=== PATIENT | male | born 1955 ===

== ENCOUNTER 2019-06-25 06:09 | Inpatient (IN) ==
[~2019-06-25 06:09] MED LIST: Bacitracin 50,000 UNIT, Polymyxin B Sulfate 500,000 UNIT, Sodium Chloride IRRigation 1,... IR ONE
[2019-06-25] MEDS ORDERED: CeFAZolin Syr 3,000MG/30 ML 3,000 MG/30 ML SYRINGE IVPB ONE (06:32)
[2019-06-25] MEDS ORDERED: Albuterol 2.5 MG/3 ML NEBULIZER IH ONE (06:32)
[2019-06-25] MEDS ORDERED: Ringers Solution, Lactated 1,000 ML IVC SCH (06:45)
[2019-06-25] MEDS ORDERED: *HR* Succinylcholine 200 MG/10 ML VIAL IVP ONE (07:13)
[2019-06-25] MEDS ORDERED: *HR* Midazolam HCl 2 MG/2 ML VIAL ONE (07:13)
[2019-06-25] MEDS ORDERED: *HR* Propofol 200 MG/20 ML VIAL IVP ONE (07:13)
[2019-06-25] MEDS ORDERED: *HR* Rocuronium Bromide 50 MG/5 ML VIAL ONE (07:13)
[2019-06-25] MEDS ORDERED: Lidocaine -MPF 2% 2 ML VIAL ONE (07:13)
[2019-06-25] MEDS ORDERED: Lidocaine HCL 4 ML Topical Solution (Laryng-O-Jet Kit Sterile Pak) TP ONE ×2 (07:13→18:24)
[2019-06-25] MEDS ORDERED: *HR* FentaNYL (PF) 100 MCG/2 ML VIAL ONE ×2 (07:13→07:15)
[2019-06-25] MEDS ORDERED: *HR* Remifentanil 1 MG VIAL IVP ONE ×6 (07:16→14:28)
[2019-06-25] MEDS ORDERED: Lacri-Lube 3.5 GM TUBE ONE (07:17)
[2019-06-25] MEDS ORDERED: LIDOCAINE 1% PF 2 ML AMPUL ONE (07:22)
[2019-06-25] MEDS ORDERED: PROPOFOL IVC ONE (07:27)
[2019-06-25] MEDS ORDERED: Acetaminophen IV 1,000 MG/100 ML INFUS..BTL IVPB ONE (07:28)
[2019-06-25] MEDS ORDERED: Famotidine 20 MG/2 ML VIAL IVP ONE (07:28)
[2019-06-25] MEDS ORDERED: Pregabalin 75 MG CAPSULE PO ONE (07:28)
--- NOTE | 2019-06-25 07:31 | Anesthesia Evaluation PreOp ---
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 ASSISTANT History: Other (L>>R pain/weakness arms and legs) Other Medical History: Diabetes Type II Anesthesia History: No Prior Anesthetic Complications, Past Anesthesia Alcohol Use: none Drug use: none Medications and Allergies Amitriptyline [Elavil] 50 mg PO HS 06/25/19 [History] Amlodipine Besylate 10 mg PO DAILY 06/25/19 [History] Ascorbic Acid [Vitamin C with Asuncion Hips] 500 mg PO DAILY 06/25/19 [History] Atorvastatin [Lipitor] 40 mg PO HS 06/25/19 [History] Cholecalciferol (D-3) [Vitamin D] 1,000 unit PO DAILY 06/25/19 [History] Cholecalciferol (Vitamin D3) [Vitamin D] 50,000 unit PO QMONTH 06/25/19 [History] Febuxostat [Uloric] 40 mg PO DAILY 06/25/19 [History] Ferrous Sulfate 325 mg PO DAILY 06/25/19 [History] Furosemide [Lasix] 40 mg PO DAILY PRN 06/25/19 [History] Gabapentin 1,600 mg PO BID 06/25/19 [History] Lisinopril [Zestril] 20 mg PO DAILY 06/25/19 [History] Loratadine [Claritin] 10 mg PO DAILY 06/25/19 [History] Metformin HCl [Glucophage] 1,000 mg PO DAILY 06/25/19 [History] Metoprolol [Lopressor] 12.5 mg PO DAILY 06/25/19 [History] Mometasone/Formoterol [Dulera 100 Mcg/5 Mcg Inhaler] 2 puff IH BID 06/25/19 [History] Montelukast [Singulair] 10 mg PO DAILY 06/25/19 [History] Potassium Chloride [K-Tab ER] 20 meq PO DAILY 06/25/19 [History] Rivaroxaban [Xarelto] 20 mg PO QPM 06/25/19 [History] Tamsulosin [Flomax] 0.4 mg PO DAILY 06/25/19 [History] Allergy/AdvReac Type Severity Reaction Status Date / Time No Known Allergies Allergy Verified 06/25/19 07:17 - Meds/Allergy Pre-op Review Medications Reviewed: Yes Allergies Reviewed: Yes Beta Blockers on Current Med List: No Anesthesia Results - Labs Laboratory Tests 06/14/19 06/14/19 06/14/19 12:00 12:00 12:00 WBC 7.6 Hgb 14.2 Hct 44.8 Plt Count 276 PT 13.4 H INR 1.2 APTT 41.1 H Sodium 133 L Potassium 4.2 Chloride 98 Carbon Dioxide 25 BUN 17 Est GFR (Non-Af Amer) > 60 Hemoglobin A1c 06/14/19 12:00 WBC Hgb Hct Plt Count PT INR APTT Sodium Potassium Chloride Carbon Dioxide BUN Est GFR (Non-Af Amer) Hemoglobin A1c 12.6 H Anesthesia Exam O2 Sat Height 1.7 m Height 1.7 m Weight 135.624 kg Weight 135.624 kg O2 Sat by Pulse Oximetry 93 Vital Signs Temp Pulse Resp BP Pulse Ox 98.8 F 104 18 132/91 93 06/25/19 07:27 06/25/19 07:27 06/25/19 07:27 06/25/19 07:27 06/25/19 07:27 Height: 5'7" Weight: 299# BMI = 47 NPO (# of Hours): MNOC - HEENT Pupil (Motor): Pupils equal, EOMI Mallampati: III Teeth: Normal Oral Opening: Greater than 3 - CERTIFIED ANESTHESIOLOGIST ASSISTANT LOC: Oriented CERTIFIED ANESTHESIOLOGIST ASSISTANT Motor: Normal Face, Deficit RUE (L>>R arm & leg Pain/Weakness), Deficit LUE, Deficit RLE, Deficit LLE CERTIFIED ANESTHESIOLOGIST ASSISTANT Sensory: Normal: Face, Deficit: RUE, LUE, RLE, LLE - Cardiac Rhythm: Regular Murmur: None - Pulmonary Breath Sounds: bilateral Clear Respiratory Effort: Symmetrical Anesthesia Assess/Plan ASA Score: 4 (HTN, Chol, Uncontrollled DM, ROBYN, COPD, Cervical Myelopathy) Level of consciousness: Cooperative, Oriented, Tranquil Anesthetic Plan: General Monitoring Plan: Standard Monitors Recovery Plan: PACU Anes Supervising Prov Stmt: Pt seen/evaluated, R&B Discussed, questions answered and consent obtained .Seth Gillette MD
--- NOTE | 2019-06-25 07:41 | History & Physical Report ---
Date of Encounter: 06/25/19 Time of Encounter: 07:35 24 Hour HP Update - Instructions Instructions: If the History and Physical is less than 30 days old and was completed prior to A.M. admission and or procedure and has NOT been updated on calendar day of procedure please complete this update prior to performing procedure. - Update Patient reports changes in Medical Condition: No Changes in examination, assessment, or condition: No Changes in Medication: No Preop tests/diagnostics Reviewed: Yes Pre-Op MRSA Screen: Negative Surgery Remains Indicated: Yes Consent for Planned Operative Procedure(s) Verified: Yes - Pre-Operative Checklist Preoperative Checklist Indicated: No Prophylactic Antibiotic Ordered: Yes Home Medications Include Beta Dirk: Yes Beta Dirk Taken Today (Day of Surgery): No Beta Dirk Taken Yesterday (Day Prior to Surgery): Yes Is VTE Prophylaxis Indicated?: Yes
[2019-06-25] MEDS ORDERED: Bacitracin 50,000 UNIT, Polymyxin B Sulfate 500,000 UNIT, Sodium Chloride IRRigation 1,... IR ONE (07:45)
[2019-06-25] MEDS ORDERED: Metoclopramide 10 MG/2 ML VIAL ONE (07:49)
[2019-06-25] MEDS ORDERED: Metoprolol XL (24 HR) Succ 50 MG TAB.ER.24H PO ONE (07:49)
[2019-06-25] MEDS ORDERED: Insulin Human Regular 10 UNIT in 0.9 % Sodium Chloride 10 ML IV PRN ×2 (08:14→08:30)
[2019-06-25] MEDS ORDERED: *HR* PHENYLEPHRINE 1,000 MCG/10 ML SYRINGE IVP ONE ×3 (08:14→12:03)
[2019-06-25] MEDS ORDERED: *HR* Phenylephrine 10 MG/ML VIAL ONE ×2 (08:24→12:29)
[2019-06-25] MEDS ORDERED: *HR* HYDROmorphone 2 MG TABLET PO PRN (09:12)
[2019-06-25] MEDS ORDERED: *HR* Promethazine 25 MG/ML VIAL IVP PRN (09:12)
[2019-06-25] MEDS ORDERED: *HR* HYDROmorphone (PF) 1 MG/ML SYRINGE IVP PRN (09:12)
[2019-06-25] MEDS ORDERED: *HR* Labetalol 20 MG/4 ML SYRINGE IVP PRN (09:12)
[2019-06-25] MEDS ORDERED: *HR* OxyCODONE Immed Rel 5 MG TABLET PO PRN (09:12)
[2019-06-25] MEDS ORDERED: Ondansetron 4 MG/2 ML VIAL ONE ×2 (09:50→19:08)
[2019-06-25] MEDS ORDERED: Dexamethasone 4 MG/ML VIAL ONE ×4 (09:50→19:08)
[2019-06-25] MEDS ORDERED: Propofol 3,000 MG/300 ML INFUS..BTL IVC ONE (11:55)
[2019-06-25] MEDS ORDERED: *HR* Dextrose 50 % in Water (Syg) 50 ML SYRINGE IVP PRN ×2 (11:57→21:50)
[2019-06-25] MEDS ORDERED: Insulin Human Regular 100 UNIT in 0.9 % Sodium Chloride 100 ML IVC SCH (12:00)
--- NOTE | 2019-06-25 15:31 | Orthopedic Operative Note ---
Date of procedure: 06/25/19 Pre-op diagnosis: Cervical stenosis, cervical myelopathy, OPLL Post-op diagnosis: same Operation/Findings: Posterior cervical fusion C2-C7: Patient was brought to the operative theater where he successfully underwent general endotracheal intubation. He was given antibiotics prior to the start of the procedure. Compression boots and stockings were used for deep vein thrombosis prophylaxis. A Mendoza catheter was placed. Leads were placed on the upper extremities and lower extremities as well as the cranium. The neurologic monitoring personnel confirmed satisfactory readings prior to the start of the procedure. Kan tongs were placed on the patient in standard fashion. The patient was turned prone on the operative table and the head rest secured to the table. The area from the mid occipital to the mid thoracic spine was prepped and draped in the usual sterile fashion posteriorly. An incision was made and centered over the C2-C7 cervical spinous processes in the midline. The scoring incision was deepened through the cervical fascia. We used Bovie cautery and Falk elevators to carefully dissect the lateral masses and expose them from C2-C7. Radiographic confirmation was confirmed by the radiologist via a discussion. We then placed lateral mass screws at C3, C4, C5, and C6, bilaterally using standard techniques. 8 separate 3.5 x 12 mm lateral mass screws were placed uneventfully and confirmed via fluorographic views as having satisfactory placement. After placement of the lateral mass screws, we turned our attention to the decompression. We removed the ligamentum flavum and interspinous and supraspinous ligaments at C5-6. We proceeded proximally with the decompression. This includes a laminectomy of C6, C5, C4, and C3. All intervening ligamentum flavum and ligamentous material was removed. We also performed a partial decompression of C2-3. Bone obtained from the laminectomies was saved in a separate sterile container for later use. After the decompression, the spinal cord could be clearly visualized from C2-3 C3 to C6. . The spinal cord was seen to expand nicely. We copiously irrigated the wound. We then decorticated the facet joints and lateral masses from C2-3, C3-4, C4-5, C5-6, and C6-7 bilaterally until bleeding bone was obtained. We then used the autograft bone obtained from the laminectomy/decompression and placed it over the lateral masses and facet joints in these regions. We then placed rods within the screw heads from C3-C6 bilaterally. We subsequently placed screw caps over the Rods and locked and finally tightened the construct in standard fashion. We then closed the wound in layers with 1 Vicryl for the Fascia, 2-0 Vicryl for the more superficial fascia and 2-0 Vicryl was used for skin closure. Dermabond was paced over the wound. Sterile dressing was placed over the wound as well. Cervical collar was placed. Patient was turned supine and extubated on the Hospital Bed. The patient was in good condition at the end of the procedure. All sponge counts, needle counts, and Instruments were correct at the end of the procedure. Anesthesia: GETA Surgeon: Tio Hernández Jr Was there an advertising sales assistant present: No Estimated blood loss (cc): 400 Specimen: None Condition: stable Disposition: PACU
[2019-06-25] MEDS ORDERED: Furosemide 40 MG/4 ML VIAL ONE (16:03)
[2019-06-25] MEDS ORDERED: EPHEDrine 50 MG/ML VIAL ONE (17:23)
--- NOTE | 2019-06-25 18:52 | Neurology - Consult Note ---
Date of Encounter: 06/25/19 Time of Encounter: 18:49 Assessment and Plan (1) Quadriparesis (muscle weakness) Current Visit: Yes Status: Acute At this time, patient is intubated and awake, is able to follow some commands however some responses to questions are inconsistent. However, at this time patient has profound weakness in all 4 extremities. Although at the time of my first assessment, he was not able to move anything. However, 40 or so minutes later, he was able to move the toes on the right foot and dorsiflex the right ankle. There are absolutely no long tract signs, no spasticity hyperreflexia or clonus. I was also not able to identify a spinal sensory level. Certainly it seems logical to suspect that there is been some injury at the cervical level, however it is difficult to explain based on conventional understanding of neuroanatomy any specific spinal cord syndrome that explains this examination. Perhaps this may be some transient effect from the surgical positioning. Decadron has been given. X-ray revealed no evidence of blood in the spinal canal. We will continue to monitor. Will sign out to Dr. Sebastian for ongoing assessment. History of Present Illness HPI: The chart was reviewed, the patient was seen and examined. Case was discussed with Dr. Hernández. Patient is a 64-year-old male known to me who has a history of multilevel cervical spinal stenosis. Patient was admitted for a posterior approach decompression. No problems were encountered during the procedure. However well in the recovery room the patient was having difficulty with moving the extremities. Patient was immediately assessed and sent for x-rays of the cervical spine which were unremarkable. Patient was then given Decadron and I was called by Dr. Hernández for status assessment. Patient does have some spatial swelling therefore it was decided not to extubate the patient at this time. Patient is awake, however does not open his eyes fully. However he seems a bit groggy and gives inconsistent responses and answers to questions. Initially when I presented however the patient could not move at all and then over the course of my assessment he was ultimately able to wiggle the toes and move the right foot up and down. He was not able to move either upper extremity or the left lower extremity. Prior to surgery however his left side was more weak than the right. Past Med Surg Social Fam HX - Past Medical History Medical history: arthritis, asthma, COPD, diabetes, glaucoma, hypertension, pulmonary embolus, RA Additional medical history: Cataracts Psychiatric history: no psych history - Past Surgical History Surgical History: orthopedic, other, other Additional surgical history: blood clot lung,knee - Social History Smoking Status: Former smoker Smokeless Tobacco Status: No Alcohol use: none Drug use: none Medications and Allergies Amitriptyline [Elavil] 50 mg PO HS 06/25/19 [History] Amlodipine Besylate 10 mg PO DAILY 06/25/19 [History] Ascorbic Acid [Vitamin C with Asuncion Hips] 500 mg PO DAILY 06/25/19 [History] Atorvastatin [Lipitor] 40 mg PO HS 06/25/19 [History] Cholecalciferol (D-3) [Vitamin D] 1,000 unit PO DAILY 06/25/19 [History] Cholecalciferol (Vitamin D3) [Vitamin D] 50,000 unit PO QMONTH 06/25/19 [History] Febuxostat [Uloric] 40 mg PO DAILY 06/25/19 [History] Ferrous Sulfate 325 mg PO DAILY 06/25/19 [History] Furosemide [Lasix] 40 mg PO DAILY PRN 06/25/19 [History] Gabapentin 1,600 mg PO BID 06/25/19 [History] Lisinopril [Zestril] 20 mg PO DAILY 06/25/19 [History] Loratadine [Claritin] 10 mg PO DAILY 06/25/19 [History] Metformin HCl [Glucophage] 1,000 mg PO DAILY 06/25/19 [History] Metoprolol [Lopressor] 12.5 mg PO DAILY 06/25/19 [History] Mometasone/Formoterol [Dulera 100 Mcg/5 Mcg Inhaler] 2 puff IH BID 06/25/19 [History] Montelukast [Singulair] 10 mg PO DAILY 06/25/19 [History] Potassium Chloride [K-Tab ER] 20 meq PO DAILY 06/25/19 [History] Rivaroxaban [Xarelto] 20 mg PO QPM 06/25/19 [History] Tamsulosin [Flomax] 0.4 mg PO DAILY 06/25/19 [History] Allergy/AdvReac Type Severity Reaction Status Date / Time No Known Allergies Allergy Verified 06/25/19 07:17 ROS unobtainable: due to endotracheal tube All Systems: The remainder of the systems were reviewed and are negative Physical Examination - Vital Signs Vital Signs: Initial Vital Signs Temp Pulse Resp BP Pulse Ox 98.8 F 104 18 132/91 93 06/25/19 07:27 06/25/19 07:27 06/25/19 07:27 06/25/19 07:06/25/19 07:27 - Exam Exam: General Examination: *CONSTITUTIONAL: Currently intubated *GENERAL APPEARANCE OF PATIENT currently intubated in the PACU *EYES: pupils equal, round, reactive to light and accommodation, conjunctiva clear without masses or ulcerations. *CARDIOVASCULAR some mild edema of the eyelids and face, distal temperature normal, dorsalis pedis pulses normal. Refer to vital signs Musculoskeletal: *GAIT AND STATION -not able to stand or walk at this time. *ASSESSMENT OF MUSCLE STRENGTH IN THE UPPER AND LOWER EXTREMITIES at this time patient is only able to dorsiflex and plantar flex the right foot, and move the toes on the right foot. There is no involuntary movements of the right leg above the knee, either upper extremity or the left lower extremity at this time. *MUSCLE TONE IN THE UPPER AND LOWER EXTREMITIES normal. No involuntary movements or atrophy are identified. Neurological: *ORIENTATION difficult to assess patient is intubated *RECURRENT AND REMOTE MEMORY patient is intubated *ATTENTION AND CONCENTRATION response to questions by nodding yes or no, however some of his responses are inconsistent and perhaps unreliable. *LANGUAGE FUNCTION patient is intubated and unable to speak. *FUND OF KNOWLEDGE unable to determine at this time. *MENTAL patient does open his eyes upon command and does make eye contact. *CN II optic fundi were normal, no papilledema noted. *CN III,IV, PERRLA extraocular eye movements were full, no nystagmus and no ptosis noted. *CN V shows normal sensation and jaw opens symmetrically. *CN VIII difficult to assess this patient remains intubated. *CN VIII shows no significant hearing loss on examination in the office. *CN IX,,X palate elevated symmetrically and normal gag reflex was noted. *CN XI difficult to assess at the time. *CN XII tongue protruded in the midline, with normal strength and movement. *SENSORY EXAMINATION I am not able to identify any evidence of a spinal level. Patient feels pinprick throughout the torso, and all 4 extremities however at times it is difficult to discern whether not he can distinguish sharp from dull. It is difficult to assess proprioception because of this. *REFLEXES: deep tendon reflexes were absent. However certainly no evidence of any long tract signs, no Babinski signs were identified no ankle clonus. *CEREBELLAR TESTING WAS not completed. *PAIN LEVEL patient does admit to pain however exact level is difficult to assess. Results - Laboratory Findings Abnormal lab findings: Abnormal lab results POC Glucose 271 mg/dL (70-99) H 06/25/19 15:11 Consult Discharge Plan - Plan Referrals: NONE,PCP [Primary Care Provider] -
--- NOTE | 2019-06-25 19:04 | Anesthesia Evaluation Post Op ---
Date of Encounter: 06/25/19 Time of Encounter: 19:03 - Vital Signs Vital Signs: Vital Signs/O2 Sat, Most Current Temp Pulse Resp BP Pulse Ox 99 F 91 18 131/81 99 06/25/19 18:38 06/25/19 18:58 06/25/19 18:58 06/25/19 18:58 06/25/19 18:58 - Lungs Lungs: Clear Ascult./Percussion - Airway Airway: Non-obstructed - Cardiovascular Regular Rate - Mental Status Mental Status: Alert & Oriented, Answers Appropriately - Pain Pain Scale: 0 Pain Scale used: Numeric (1 - 10) - Nausea Vomiting Nausea Vomiting: Not Present - Hydration Hydration: NPO, Mendoza catheter - Discharge PostOp Status: Transfer Patient to floor (Patient not moving Loco. UE and LLE, evaluated by neurologist and will be observed in ICU)
[2019-06-25] MEDS ORDERED: NON-FORMULARY MEDICATION 1 EACH EACH (Cholecalciferol (Vitamin D3) [Vitamin D3] 50,000 UNI PO SCH (20:04)
[2019-06-25] MEDS ORDERED: Naloxone 0.4 MG/ML INJ IVP PRN (20:04)
[2019-06-25] MEDS ORDERED: *HR* HYDROcodone/Acet 5/325 mg TABLET PO PRN (20:04)
[2019-06-25] MEDS ORDERED: Ondansetron 4 MG/2 ML VIAL IVP PRN (20:04)
[2019-06-25] MEDS ORDERED: Acetaminophen 325 MG TABLET PO PRN (20:04)
--- NOTE | 2019-06-25 20:31 | Internal Med History&Physical ---
<Jaret Sykes - Last Filed: 06/26/19 00:40> Date of Encounter: 06/26/19 Time of Encounter: 20:31 Internal Medicine - H&P: HPI History of present illness: Mr. Segal is a 64-year-old male with a PMH of cervical spinal stenosis, asthma, COPD, DM, HTN, RA, previous PE on Xarelto who was admitted for a posterior approach cervical decompression with posterior cervical fusion from levels C2- C7. No complications occurred during the procedure. In the recovery room however, patient was noted to have difficulty moving his extremities. A cervical spine XR was obtained, which was unremarkable. He was then given a dose of Decadron. Neurology was consulted, who discussed the case with Dr. Hernández. Per neurology note, patient had inconsistent responses to some questions and was able to follow some commands. He was noted to have profound weakness in all 4 extremities. Initially, he was unable to move his extremities, but approximately 40 minutes later, he was able to move the toes on his right foot and dorsiflex his right ankle. No long tract, spasticity, clonus, or hyperreflexia were noted. Patient was transferred to the ICU for further management and observation. His glucose has been elevated since admission. POC glucose was 395 at 06:33. He was started on insulin drip. Last POC glucose level was 271. Of note, he has a history of poorly controlled diabetes. During my assessment, patient was only able to slightly internally and externally rotate his right lower extremity. He was unable to dorsiflex or plantarflex either of his feet. He had no other movement in any of his extremities. He was also noted to be in mild respiratory distress when I first assessed him. He was only able to speak in very short sentences before becoming short of breath. He was on 8 L of oxygen via Oxymask. He does have a known history of COPD, but does not wear oxygen at home. During my reassessment, his respiratory rate has slowed down, and he appears to be in less respiratory distress. He was satting at 98% on 8 L. We will continue to closely monitor his respiratory status for signs of decompensation. Of note, patient would be a very high-risk intubation given his recent cervical spinal fusion. During my interview with him, he kept saying that he wanted to get up. He denied any pain, numbness, or tingling in his neck or extremities. His sensation is intact in the upper and lower extremities on my assessment. I spoke with Dr. Hernández over the phone and gave him an update on patient's current status. Dr. Hernández said that he will be in to assess the patient in the morning. No urgent imaging is required at this time. Our plan in the meantime is to obtain labs, including CBC, BMP, lactate, and ABG. Patient will be transitioned from insulin drip to low-dose SSI Q6H. I will start him on low- dose, given his history of uncontrolled diabetes and the fact that his glucose is likely elevated at baseline. Past Med Surg Social Fam HX - Past Medical History Medical history: arthritis, asthma, COPD, diabetes, glaucoma, hypertension, pulmonary embolus, RA Additional medical history: Cataracts Psychiatric history: no psych history - Past Surgical History Surgical History: orthopedic, other, other Additional surgical history: blood clot lung,knee - Social History Smoking Status: Former smoker Smokeless Tobacco Status: No Alcohol use: none Drug use: none Internal Medicine - H&P: Meds Amitriptyline [Elavil] 50 mg PO HS 06/25/19 [History] Amlodipine Besylate 10 mg PO DAILY 06/25/19 [History] Ascorbic Acid [Vitamin C with Asuncion Hips] 500 mg PO DAILY 06/25/19 [History] Atorvastatin [Lipitor] 40 mg PO HS 06/25/19 [History] Cholecalciferol (D-3) [Vitamin D] 1,000 unit PO DAILY 06/25/19 [History] Cholecalciferol (Vitamin D3) [Vitamin D] 50,000 unit PO QMONTH 06/25/19 [History] Febuxostat [Uloric] 40 mg PO DAILY 06/25/19 [History] Ferrous Sulfate 325 mg PO DAILY 06/25/19 [History] Furosemide [Lasix] 40 mg PO DAILY PRN 06/25/19 [History] Gabapentin 1,600 mg PO BID 06/25/19 [History] Lisinopril [Zestril] 20 mg PO DAILY 06/25/19 [History] Loratadine [Claritin] 10 mg PO DAILY 06/25/19 [History] Metformin HCl [Glucophage] 1,000 mg PO DAILY 06/25/19 [History] Metoprolol [Lopressor] 12.5 mg PO DAILY 06/25/19 [History] Mometasone/Formoterol [Dulera 100 Mcg/5 Mcg Inhaler] 2 puff IH BID 06/25/19 [History] Montelukast [Singulair] 10 mg PO DAILY 06/25/19 [History] Potassium Chloride [K-Tab ER] 20 meq PO DAILY 06/25/19 [History] Rivaroxaban [Xarelto] 20 mg PO QPM 06/25/19 [History] Tamsulosin [Flomax] 0.4 mg PO DAILY 06/25/19 [History] Allergy/AdvReac Type Severity Reaction Status Date / Time No Known Allergies Allergy Verified 06/25/19 07:17 All Systems PM: A 10-system review of systems was performed and is negative for pertinent findings except as documented above in the HPI. - Cardiovascular Cardiovascular ROS IM: dyspnea, no chest pain, no palpitations - Respiratory Respiratory: dyspnea - Musculoskeletal Musculoskeletal ROS IM: no neck pain, no numbness, no tingling - Neurological Neurological ROS: focal weakness, other Additional comments: Unable to move all 4 extremities, with the exception of slight internal and external rotation of the right lower extremity - Constitutional Vitals: Temp Pulse Resp BP Pulse Ox 100.2 F H 93 19 126/85 98 06/25/19 20:00 06/25/19 20:00 06/25/19 20:00 06/25/19 20:00 06/25/19 20:00 General appearance: Present: mild distress, morbidly obese Exam: Slight internal and external rotation of the right lower extremity; no other movement present in the upper or lower extremities; 0 out of 5 strength; appears to be in moderate respiratory distress - Head Head exam: Present: atraumatic, normocephalic - Respiratory Respiratory exam: Present: decreased breath sounds Additional comments: Shortened inspiratory phase - Cardiovascular Cardiovascular exam: Present: RRR, +S1, +S2 - GI/Abdominal GI/Abdominal exam: Present: normal bowel sounds, soft - Extremities Exam Extremities exam: Absent: pedal edema, tenderness - Neurological Exam Neurological exam: Absent: strengths equal and symetr throughout, facial droop, speech deficit - Expanded Neurological Exam Neuro motor strength exam: LUE: 0, RUE: 0, LLE: 0, RLE: 0 - Skin Skin exam: Present: dry, intact Internal Med - H&P Results - Labs CBC & Chem 7: 06/25/19 21:20 06/25/19 21:20 - Impressions ITS Impressions Cervical Spine X-Ray 06/25/19 00:00 IMPRESSION: Status post posterior stabilization from C3-C6. D/ / 06/25/2019 15:26:56 Amadeo Cheung MD / maria guadalupe Interpreting Provider: Amadeo Cheung MD Fluoroscopy 06/25/19 00:00 IMPRESSION: Status post posterior stabilization from C3-C6. D/ / 06/25/2019 15:26:56 Amadeo Cheung MD / maria guadalupe Interpreting Provider: Amadeo Cheung MD Cervical Spine X-Ray 06/25/19 17:13 IMPRESSION: Posterior cervical fusion from C3 through C6. D/ / 06/25/2019 17:51:31 Clifford Salgado MD / maria guadalupe Interpreting Provider: Clifford Salgado MD - Assessment and Plan (1) Quadriparesis (muscle weakness) Current Visit: Yes Status: Acute Assessment and plan: - Patient is status post posterior cervical fusion of C2-C7 by Dr. Hernández for cervical spinal stenosis on 06/25/19 - Patient noted to have lack of movement in all 4 extremities after the operation - Patient received one dose of Decadron - Both Dr. Hernández and neurology are following - Per neurology note: On initial assessment, patient was unable to move his extremities at all, but 40 minutes later, had minimal movement in his right lower extremity - On my assessment, patient is able to slightly externally and internally rotate his right lower extremity, but cannot dorsiflex or plantarflex. He has no other movement in his extremities on my evaluation - I spoke with Dr. Hernández on the phone; due to patient's inability to move his right foot, his presentation is inconsistent with paralysis. Dr. Hernández states that he will reassess patient in the morning; no further imaging is indicated at this time Plan - Neurology and orthopedics are following; will reassess patient in the morning - No additional imaging is indicated at this time (2) Dyspnea Current Visit: Yes Status: Acute Assessment and plan: - On initial exam, patient was noted to be somewhat short of breath; was satting at 98% on 8L via oxymask - Patient does have a known history of COPD, but does not require oxygen at home - Given patient's inability to move his extremities, initial concern was possible diaphragmatic process - On reassessment, patient's respiratory rate has come down and he appears less distressed - Of note, patient would be a potentially high risk intubation given his recent cervical fusion Plan - Will continue to closely monitor patient's respiratory status and wean down off of oxygen - Patient will be reassessed by Dr. Hernández in the morning as documented above Qualifiers: Qualified Code(s): R06.00 - Dyspnea, unspecified (3) Status post cervical spinal fusion Current Visit: Yes Status: Acute Assessment and plan: - Status post posterior cervical fusion of C2-C7 by Dr. Hernández - Patient has hydrocodone, oxycodone ordered for pain as needed - Management per orthopedics (4) Diabetes Current Visit: Yes Status: Acute Assessment and plan: - Patient has a known history of uncontrolled diabetes - He was found to be hyperglycemic this morning at 395 - He was started on an insulin drip after being transferred to the ICU - Last POC glucose was 271 Plan - Insulin drip will be discontinued; switch to low-dose SSI Q6 Qualifiers: Qualified Code(s): E11.9 - Type 2 diabetes mellitus without complications (5) Hypertension Current Visit: Yes Status: Acute Assessment and plan: - Patient has a known history of hypertension - Well controlled at this time - Continue home Amlodipine, Lopressor Qualifiers: Qualified Code(s): I10 - Essential (primary) hypertension - Time Spent With Patient Total time spent is greater than 50% in coordination of care (as documented) at patient's floor/unit and/or counseling patient: - VTE Documentation of Mechanical Device: Graduated compression elastic hosiery <Bebeto Turpin - Last Filed: 06/26/19 06:59> Date of Encounter: 06/25/19 Internal Medicine - H&P: HPI History of present illness: Mr. Segal is a 64 year old male All Systems PM: A 10-system review of systems was performed and is negative for pertinent findings except as documented above in the HPI. - Constitutional Vitals: Temp Pulse Resp BP Pulse Ox 100.2 F H 110 17 114/83 94 06/26/19 04:42 06/26/19 06:00 06/26/19 06:00 06/26/19 06:00 06/26/19 06:00 Internal Med - H&P Results - Labs CBC & Chem 7: 06/25/19 21:20 06/25/19 21:20 Labs: Short CBC 06/25/19 Range/Units 21:20 WBC 10.1 (4.3-11.1) K/mcL Hgb 13.6 (12.9-16.9) g/dL Hct 42.8 (37.5-50.1) % Plt Count 180 (140-400) K/mcL Neutrophils # 9.0 H (1.6-8.9) K/mcL BMP 06/25/19 21:20 Sodium 135 L Potassium 4.0 Chloride 100 Carbon Dioxide 26 BUN 13 Creatinine 1.17 Glucose 259 H Calcium 8.8 - ABG Interpretation ABG results: 06/25/19 21:45 ABG pH 7.38 ABG pCO2 44 ABG pO2 104 ABG HCO3 26 ABG Total CO2 28 H ABG O2 Saturation 98 ABG Base Excess 1 - Impressions ITS Impressions Cervical Spine X-Ray 06/25/19 00:00 IMPRESSION: Status post posterior stabilization from C3-C6. D/ /25/2019 15:26:56 Amadeo Cheung MD / maria guadalupe Interpreting Provider: Amadeo Cheung MD Fluoroscopy 06/25/19 00:00 IMPRESSION: Status post posterior stabilization from C3-C6. D/ : / 06/25/2019 15:26:56 Amadeo Cheung MD / maria guadalupe Interpreting Provider: Amadeo Cheung MD Cervical Spine X-Ray 06/25/19 17:13 IMPRESSION: Posterior cervical fusion from C3 through C6. D/ / 06/25/2019 17:51:31 Clifford Salgado MD / maria guadalupe Interpreting Provider: Clifford Salgado MD - Time Spent With Patient Total time spent is greater than 50% in coordination of care (as documented) at patient's floor/unit and/or counseling patient: - Attending Attestation I saw and evaluated the patient. I reviewed the residents note, performed my own physical examination and agree with findings and plan as documented in the residents note. Patient seen and examined on 06/25/19. Consult requested by Dr. Hernández for management of hyperglycemia and diabetes. Patient still unable to move his arms and legs on my exam. We did update Dr. Hernández of patient's status, no further recommendations at this time. Blood glucose has improved, will continue to monitor. We will also continue frequent neuro checks. Follow-up with further management with Dr. Hernández and neurology in the morning.
[2019-06-25] MEDS: *HR* Rivaroxaban 10 MG TABLET PO SCH (21:23)
[2019-06-25] MEDS: Ringers Solution, Lactated 1,000 ML IVC SCH (21:42)
[2019-06-25 21:47] LABS: Basophils % 0.4 %; Eosinophils % 0.2 %; Hematocrit 42.8 % (37.5-50.1); Hemoglobin 13.6 g/dL (12.9-16.9); Immature Granulocytes % 0.6 % (0-4); Lymphocytes # 0.6 K/mcL (0.6-4.6); Lymphocytes % 5.7 %; Mean Corpuscular HGB Conc 31.8 g/dL (31.6-35.5); Mean Corpuscular Hemoglobin 25.5 pg (28.0-33.3); Mean Corpuscular Volume 80.1 fL (83.0-100.0); Mean Platelet Volume 9.8 fL (9.4-12.4); Monocytes # 0.5 K/mcL (0.0-1.3); Monocytes % 4.5 %; Platelet Count 180 K/mcL (140-400); Red Blood Count 5.34 M/mcL (4.19-5.50); Segmented Neutrophils % 88.6 %; White Blood Count 10.1 K/mcL (4.3-11.1)
[2019-06-25 21:49] LABS: ABG Base Excess 1 mEq/L (-2 to 3); ABG HCO3 26 mEq/L (21-27); ABG Oxygen Saturation 98 % (95-98); ABG PCO2 44 mmHg (35-45); ABG PH 7.38 pH Units (7.32-7.45); ABG PO2 104 mmHg (85-104); ABG TCO2 28 mEq/L (20-26)
[2019-06-25] MEDS ORDERED: D5% in Water 1,000 ML IVC PRN (21:50)
[2019-06-25] MEDS ORDERED: Dextrose Gel 15 GM/37.5 ML TUBE PO PRN ×2 (21:50)
[2019-06-25 22:08] LABS: BUN/Creatinine Ratio 11 (6-26); Blood Urea Nitrogen 13 mg/dL (8-23); Calcium 8.8 mg/dL (8.6-10.3); Carbon Dioxide 26 mEq/L (23-29); Chloride 100 mEq/L (98-107); Glucose 259 mg/dL (70-105); Osmolality,Calculated 289 (280-300); Sodium 135 mEq/L (136-145); eGFR For African Americans > 60 (> 60); eGFR For Non-African Americans > 60 (> 60)
[2019-06-25] MEDS: Budesonide/Formoterol 80/4.5 MDI IH SCH (22:28)
[2019-06-25] MEDS: *HR* OxyCODONE Immed Rel 5 MG TABLET PO PRN (23:45)
[2019-06-25] MEDS: Insulin LISPRO 300 UNITS/3 ML VIAL SQ SCH (23:45)
[2019-06-26] MEDS: Ringers Solution, Lactated 1,000 ML IVC SCH ×2 (06:11→18:16)
[2019-06-26] MEDS: Insulin LISPRO 300 UNITS/3 ML VIAL SQ SCH ×2 (06:40→11:30)
[2019-06-26 07:15] LABS: Basophils % 0.2 %; Hematocrit 42.8 % (37.5-50.1); Hemoglobin 13.4 g/dL (12.9-16.9); Immature Granulocytes % 0.7 % (0-4); Lymphocytes # 0.8 K/mcL (0.6-4.6); Lymphocytes % 7.6 %; Mean Corpuscular HGB Conc 31.3 g/dL (31.6-35.5); Mean Corpuscular Hemoglobin 25.2 pg (28.0-33.3); Mean Corpuscular Volume 80.6 fL (83.0-100.0); Mean Platelet Volume 9.7 fL (9.4-12.4); Monocytes # 0.8 K/mcL (0.0-1.3); Platelet Count 178 K/mcL (140-400); Red Blood Count 5.31 M/mcL (4.19-5.50); Red Cell Distribution Width 15.9 % (11.5-14.5); Segmented Neutrophils % 84.5 %; White Blood Count 10.7 K/mcL (4.3-11.1)
[2019-06-26 07:35] LABS: BUN/Creatinine Ratio 11 (6-26); Blood Urea Nitrogen 13 mg/dL (8-23); Calcium 8.7 mg/dL (8.6-10.3); Carbon Dioxide 23 mEq/L (23-29); Chloride 97 mEq/L (98-107); Glucose 298 mg/dL (70-105); Osmolality,Calculated 295 (280-300); Potassium 4.4 mEq/L (3.5-5.1); Sodium 137 mEq/L (136-145); eGFR For African Americans > 60 (> 60); eGFR For Non-African Americans 60 (> 60)
[2019-06-26] MEDS: Budesonide/Formoterol 80/4.5 MDI IH SCH ×2 (07:40→20:31)
[2019-06-26] MEDS ORDERED: *HR* Metformin 500 MG TABLET PO SCH (08:00)
--- NOTE | 2019-06-26 08:27 | Spine Progress Note ---
Date of Encounter: 06/26/19 Time of Encounter: 08:16 Subjective Principal diagnosis: Cervical stenosis, cervical myelopathy, OPLL Interval history: The patient complains of neck pain as well as pain in the arms and legs. Patient is now extubated. Afebrile vital signs are stable. Dressing is clean dry and intact. He has had some improvement in his neurologic exam compared to the exam immediately and recovery room after surgery. He is able to squeeze his right hand. He with true his right lower extremity which included knee flexion and extension as well as dorsiflexion and plantar flexion of the foot in response to squeezing his leg. He has sensation in his upper and lower extremities and fine squeezing upper or lower extremities painful. Assessment :stable. Concern for central cord syndrome perhaps due to neutral positioning for prolonged duration. Plan : We will obtain MRI of brain and cervical spine. Discussed case with Drs. Valera and Anson. Most central cord syndromes have slow improvement over time in neurologic status. Objective Vital signs: Vital Signs Temp Pulse Resp BP Pulse Ox 06/26/19 07:00 109 16 125/50 93 06/26/19 06:00 110 17 114/83 94 06/26/19 05:00 110 17 110/80 95 06/26/19 04:42 100.2 F H 06/26/19 04:00 110 17 113/81 95 06/26/19 03:01 109 06/26/19 03:00 108 16 116/80 94 06/26/19 02:00 107 16 109/76 94 06/26/19 01:00 108 16 112/79 94 06/26/19 00:00 108 18 124/83 90 06/25/19 23:53 14 126/89 90 06/25/19 23:49 99.8 F H 06/25/19 23:25 105 06/25/19 23:00 105 20 126/89 99 06/25/19 22:28 18 99 06/25/19 22:00 104 20 119/83 98 06/25/19 21:00 102 19 122/88 99 06/25/19 20:00 100.2 F H 93 19 126/85 98 06/25/19 19:40 92 06/25/19 19:18 98.9 F 91 18 128/90 99 06/25/19 19:08 98.9 F 96 18 120/82 99 07/29/19 18:58 91 18 131/81 99 06/25/19 18:48 90 18 127/81 99 06/25/19 18:38 99 F 89 22 132/93 98 06/25/19 18:28 93 18 130/84 98 06/25/19 18:18 90 18 116/78 98 06/25/19 18:08 98.1 F 90 20 120/78 98 06/25/19 17:58 90 16 120/79 97 06/25/19 17:48 91 20 120/75 98 06/25/19 17:38 98.3 F 92 18 114/76 97 06/25/19 17:28 92 20 121/77 98 06/25/19 17:18 92 18 114/72 97 06/25/19 17:08 98.6 F 92 18 112/73 97 06/25/19 16:58 93 20 110/73 97 06/25/19 16:48 94 20 105/66 97 06/25/19 16:38 98.3 F 95 22 104/68 97 06/25/19 16:28 95 18 112/69 98 06/25/19 16:18 98 20 98/62 97 06/25/19 16:10 22 95/63 100 06/25/19 16:08 98.4 F 97 20 95/63 100 Intake and Output 06/25/19 06/26/19 06/26/19 23:59 07:59 15:59 Intake Total 1196.3 / 1220.5 1100 / 1100 Output Total 2100 / 2100 700 / 700 Balance -903.7 / -879.5 400 / 400 Intake: IV Fluids 1196.3 / 1220.5 1100 / 1100 HumuLIN R 100 UNIT In 0.9 % 66.3 / 70.3 Sodium Chloride 100 ML @ 6.75 UNIT/HR 6.818 mls/hr IVC CONT EDIN Rx#:[id number] Lactated Ringers 1,000 ML @ 100 1000 / 1000 1000 / 1000 mls/hr IVC .Q10H EDIN Rx#: [id number] Ancef Syringe 3,000 MG/30 ML 3, 30 / 30 000 mg In 30 ml @ 200 mls/hr IVPB PREOP ONE Rx#:[id number] Ancef 2,000 MG In 0.9 % Sodium 100 / 100 100 / 100 Chloride 100 ML @ 200 mls/hr IVPB Q8H [facility] Rx#:[id number] Output: Estimated Blood Loss 400 / 400 Urine Amount (Catheter) 1150 / 1150 Catheter 550 / 550 700 / 700 Other: Weight 141.1 kg Blood Glucose* 295 - Labs CBC & BMP: 06/26/19 06:48 06/26/19 06:48 Labs: Abnormal lab results MCV 80.6 fL (83.0-100.0) L 06/26/19 06:48 MCH 25.2 pg (28.0-33.3) L 06/26/19 06:48 MCHC 31.3 g/dL (31.6-35.5) L 06/26/19 06:48 RDW 15.9 % (11.5-14.5) H 06/26/19 06:48 Neutrophils # 9.0 K/mcL (1.6-8.9) H 06/26/19 06:48 ABG Total CO2 28 mEq/L (20-26) H 06/25/19 21:45 Sodium 135 mEq/L (136-145) L 06/25/19 21:20 Chloride 97 mEq/L (98-107) L 06/26/19 06:48 Glucose 298 mg/dL (70-105) H 06/26/19 06:48 POC Glucose 295 mg/dL (70-99) H 06/25/19 23:30 Consult Discharge Plan - Plan Referrals: NONE,PCP [Primary Care Provider] -
--- NOTE | 2019-06-26 08:59 | Internal Med Progress Note ---
Hospitalist Progress Note - Encounter Date of Encounter: 06/26/19 Time of Encounter: 08:58 - Subjective Interval History: Kemal Segal is a pleasant 64 M w hx cervical spinal stenosis, asthma, COPD, DM2, HTN, RA, previous PE on Xarelto, who was admitted 06/25 for a posterior approach cervical decompression with posterior cervical fusion from levels C3-C 6, who postoperatively was noted to have quadriparesis. OrthoSpine consulted neurology, both of whom are seeing the patient. Pt admitted to ICU under hospitalist for general medical management while evaluating for post-operative complications. Pt did undergo MRI this AM which shows post-op fluid col lection/seroma that possibly represents hematoma, and there is also edema C2-C4 and C5-6. Neurosurgery discussed with patient and they are recommending transfer to [facility], which patient accepts. At time of my interview, pt denies any acute issues. Tolerating diet. In fact, his sugars remain quite elevated. He does state that he has painful neuropathic sensation of electric shock if anyone touches his LUE or LLE. Denies CP, SOB, N/V/D. - Exam Vitals: Temp Pulse Resp BP Pulse Ox 99.1 F 109 16 125/50 93 06/26/19 08:26 06/26/19 07:00 06/26/19 07:00 06/26/19 07:00 06/26/19 07:00 Exam: General: NAD, good eye contact, relatively well appearing and calm, obese Thoracic: Normal breath sounds b/l, no wheezing or crackles Cardio: Normal S1 and S2, regular rate and rhythm Abdomen: Soft, nondistended, does report mild discomfort generally with palpation but no specific tenderness Extremities: Warm, well perfused. DP pulses 2+ b/l. No edema noted Skin: Intact. No rashes, bruises, or ulcers Neuro: Awake, fully oriented. Speech fluent. Able to move R index finger and extend R knee and wiggle R toes, sensation present throughout but is hyperalgesic L>R - Summary of Assessment and Plan Summary of Assessment and Plan: Kemal Segal is a pleasant 64 M w hx cervical spinal stenosis, asthma, COPD, DM2, HTN, RA, previous PE on Xarelto, who was admitted 06/25 for a posterior approach cervical decompression with posterior cervical fusion from levels C3- C6, who postoperatively was noted to have quadriparesis. MRI showing local edema and post-op fluid collection (?hematoma). Quadriparesis: pt stated that prior to surgery he was having L-sided numbness and weakness progressively which is why he needed C-spine surgery. Initially quadriparesis, rec'd decadron post-op, currently able to move R index finger and RLE. MRI brain unremarkable. MRI C-spine showing the following: New posterior cervical fusion and laminectomy from C3 through C6. Postopera tive seroma is identified within the posterior epidural space from C3-4 through C5-6. 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 New high T2 signal abnormality within the cord centrally at C2 and C4 and on the right-side at C5-6. These changes may represent edema/myelomalacia. - Neuro following, appreciate co-management - OrthoSpine following, rec transfer to [facility] which they have arranged DM2: hyperglycemia 300s, poor control despite SSI, will start insulin gtt to calculate 24h needs and then convert to basal/bolus PE: holding Xarelto marta-operatively especially now that pt possibly has post-op hematoma HTN: home amlodipine and lopressor Morbid obesity: BMI 48 PPx: SCDs Activity: bedrest FEN: ADA, no MIVF Lines: PIV Code: Full Dispo: patient requires inpatient eval and management at this time. Anticipate transfer to [facility] Internal Medicine: Result - Labs CBC & Chem 7: 06/26/19 06:48 06/26/19 06:48 Labs: Short CBC 06/25/19 06/26/19 Range/Units 21:20 06:48 WBC 10.1 10.7 (4.3-11.1) K/mcL Hgb 13.6 13.4 (12.9-16.9) g/dL Hct 42.8 42.8 (37.5-50.1) % Plt Count 180 178 (140-400) K/mcL Neutrophils # 9.0 H 9.0 H (1.6-8.9) K/mcL BMP 06/25/19 06/26/19 21:20 06:48 Sodium 135 L 137 Potassium 4.0 4.4 Chloride 100 97 L Carbon Dioxide 26 23 BUN 13 13 Creatinine 1.17 1.23 Glucose 259 H 298 H Calcium 8.8 8.7 - ABG Interpretation ABG results: ABG ABG pH 7.38 pH Units (7.32-7.45) 06/25/19 21:45 ABG pCO2 44 mmHg (35-45) 06/25/19 21:45 ABG pO2 104 mmHg (85-104) 06/25/19 21:45 ABG O2 Saturation 98 % (95-98) 06/25/19 21:45 - Impressions Impressions Cervical Spine X-Ray 06/25/19 00:00 IMPRESSION: Status post posterior stabilization from C3-C6. D/ / 06/25/2019 15:26:56 Amadeo Cheung MD / maria guadalupe Interpreting Provider: Amadeo Cheung MD Fluoroscopy 06/25/19 00:00 IMPRESSION: Status post posterior stabilization from C3-C6. D/ / 06/25/2019 15:26:56 Amadeo Cheung MD / maria guadalupe Interpreting Provider: Amadeo Cheung MD Cervical Spine X-Ray 06/25/19 17:13 IMPRESSION: Posterior cervical fusion from C3 through C6. D/ / 06/25/2019 17:51:31 Clifford Salgado MD / maria guadalupe Interpreting Provider: Clifford Salgado MD - VTE Documentation of Mechanical Device: Graduated compression elastic hosiery Consult Discharge Plan - Plan Referrals: NONE,PCP [Primary Care Provider] -
[2019-06-26] MEDS ORDERED: amLODIPine 5 MG TABLET PO SCH (09:00)
[2019-06-26] MEDS ORDERED: Loratadine 10 MG TABLET PO SCH (09:00)
[2019-06-26] MEDS ORDERED: Ascorbic Acid 500 MG TABLET PO SCH (09:00)
[2019-06-26] MEDS ORDERED: Febuxostat [Uloric] 40 MG PO SCH (09:00)
[2019-06-26] MEDS ORDERED: Cholecalciferol (D-3) 1,000 UNIT (25MCG) TABLET PO SCH (09:00)
--- NOTE | 2019-06-26 09:50 | Neurology Progress Note ---
<Israel Jarrett J - Last Filed: 06/26/19 15:20> Date of Encounter: 06/26/19 Time of Encounter: 09:42 Assessment and Plan (1) Quadriparesis (muscle weakness) Current Visit: Yes Status: Acute S/P Posterior cervical fusion C3-C7 Chronic left sided weakness before surgery; developed pronounced weakness of RUE/RLE in PACU Concerns for spinal hematoma vs central cord syndrome Decadron given immediately in PACU and XR obtained XR-no blood in the spinal canal This morning he is able to move RLE but is still unable to move RUE. LUE, and LLE appears to be paralyzed and he is having intense pain in all 4 extremities left greater than right. No obvious spinal level found on exam. PLAN: MRI of the brain and cervical spine now Continue with medical and supportive care Further recommendations pending w/u and discussion of the case with Dr. Griggs. Subjective Principal diagnosis: Cervical stenosis, cervical myelopathy, OPLL Interval history: He continues to have c/o of neck pain and pain throughout all 4 extremities. (pain on lt > rt). He is however able to move his RLE today which he was unable to do yesterday in the immediate post-op period. POC was discussed including the need for MRI of the brain and cervical spine. Objective - Constitutional Vitals: Temp Pulse Resp BP Pulse Ox 99.1 F 112 16 125/50 93 06/26/19 08:26 06/26/19 07:00 06/26/19 07:00 06/26/19 07:00 06/26/19 07:00 Exam: Examination: General Examination: *CONSTITUTIONAL: Alert and oriented x3, in mild distress d/t pain *GENERAL APPEARANCE OF PATIENT appears healthy and well groomed *EYES: pupils equal, round, reactive to light and accommodation, conjunctiva clear *CARDIOVASCULAR: no peripheral edema, distal temperature normal, dorsalis pedis pulses normal. Refer to vital signs * MUSCULOSKELETAL: *GAIT AND STATION:unable to stand or walk *ASSESSMENT OF MUSCLE STRENGTH IN THE UPPER AND LOWER EXTREMITIES Today he has some voluntary movement of the right leg above the knee and he can dorsiflex and plantar flex the right foot. Otherwise, he has gross left hemiparesis and paralysis of the right arm as well. Neurological: *ORIENTATION to person, situation, time and place *LANGUAGE AND FUNCTION no significant aphasia or dysarthia was noted. *ATTENTION AND CONCENTRATION are normal *LANGUAGE FUNCTION no significant aphasia or dysarthia was noted. *FUND OF KNOWLEDGE aware of current events, past history, vocabulary *MENTAL attention span and concentration normal. *CN II optic fundi were normal, no papilledema noted. *CN III,IV, PERRLA extraocular eye movements were full, no nystagmus and no ptosis noted. *CN V shows normal sensation and jaw opens symmetrically. *CN VII shows normal facial movement symmetrically, upper and lower bilaterally. *CN VIII shows no significant hearing loss on exam *CN IX-X palate elevated symmetrically *CN XI normal strength in the sternocleidomastoid muscles, symmetrical shoulder shrugging. *CN XII tongue protruded in the midline, with normal strength and movement. *SENSORY EXAMINATION There is no obvious spinal level identified on exam. He is able to feel pinprick and light tough sensation in all 4 extremties and on his torso. He appears to have intense pain more profound on the left side. *REFLEXES: deep tendon reflexes are absent, no pathological reflexes noted. *CEREBELLAR TESTING not completed d/t complicated neuro condition *PAIN LEVEL 10/10 all over - VTE Documentation of Mechanical Device: Graduated compression elastic hosiery Results - Laboratory Findings CBC and BMP: 06/26/19 06:48 06/26/19 06:48 Abnormal lab findings: Abnormal lab results MCV 80.6 fL (83.0-100.0) L 06/26/19 06:48 MCH 25.2 pg (28.0-33.3) L 06/26/19 06:48 MCHC 31.3 g/dL (31.6-35.5) L 06/26/19 06:48 RDW 15.9 % (11.5-14.5) H 06/26/19 06:48 Neutrophils # 9.0 K/mcL (1.6-8.9) H 06/26/19 06:48 ABG Total CO2 28 mEq/L (20-26) H 06/25/19 21:45 Sodium 135 mEq/L (136-145) L 06/25/19 21:20 Chloride 97 mEq/L (98-107) L 06/26/19 06:48 Glucose 298 mg/dL (70-105) H 06/26/19 06:48 POC Glucose 295 mg/dL (70-99) H 06/25/19 23:30 Consult Discharge Plan - Plan Referrals: NONE,PCP [Primary Care Provider] - <Hardy Griggs I - Last Filed: 06/26/19 16:11> Date of Encounter: 06/26/19 Assessment and Plan (1) Quadriparesis (muscle weakness) Current Visit: Yes Status: Acute I have personally performed a face to face diagnostic evaluation, including HPI, EXAM, which is included in the Assesment and plan, which was discussed with Israel Jarrett CNP, I agree with the above outlined documentation. Patient seen and examined this patient who has an history of severe spinal stenosis underwent decompression surgery now unable to move from his neck down except some movement in his right lower extremity, On examination he is alert awake and oriented 3 No cranial nerve nerve dysfunction , follow simple commands On motor examination patient not able to move both upper extremities neither his left lower extremity with minimal movement in the right foot , on sensory examination there is no sensory level patient has significant hyperesthesias all over his body from his neck down, he is able to feel light touch and pinprick without any discrimination, unable to test reflexes due to significant pain all over his body, toes were downgoing bilaterally. Considering all this possible that patient likely has central cord syndrome but at the same time spinal hematoma is a major concern as well Patient will be getting a stat MRI of the cervical spine such as getting an MRI of the brain to exclude any intracranial etiology Patient's symptoms were discussed Dr. Hernández as well as the patient himself. Hardy Griggs MD. Neurology Objective - Constitutional Vitals: Temp Pulse Resp BP Pulse Ox 98.3 F 108 16 126/80 90 06/26/19 12:00 06/26/19 13:00 06/26/19 13:00 06/26/19 13:00 06/26/19 13:00 Results - Laboratory Findings CBC and BMP: 06/26/19 06:48 06/26/19 06:48 Abnormal lab findings: Abnormal lab results MCV 80.6 fL (83.0-100.0) L 06/26/19 06:48 MCH 25.2 pg (28.0-33.3) L 06/26/19 06:48 MCHC 31.3 g/dL (31.6-35.5) L 06/26/19 06:48 RDW 15.9 % (11.5-14.5) H 06/26/19 06:48 Neutrophils # 9.0 K/mcL (1.6-8.9) H 06/26/19 06:48 ABG Total CO2 28 mEq/L (20-26) H 06/25/19 21:45 Sodium 135 mEq/L (136-145) L 06/25/19 21:20 Chloride 97 mEq/L (98-107) L 06/26/19 06:48 Glucose 298 mg/dL (70-105) H 06/26/19 06:48 POC Glucose 295 mg/dL (70-99) H 06/25/19 23:30
[2019-06-26] MEDS: *HR* OxyCODONE Immed Rel 5 MG TABLET PO PRN ×3 (11:25→23:16)
--- NOTE | 2019-06-26 13:20 | Spine Progress Note ---
Date of Encounter: 06/26/19 Time of Encounter: 13:16 Subjective Principal diagnosis: Cervical stenosis, cervical myelopathy, OPLL Interval history: IMRI of the cervical spine shows severe stenosis posterior to C2 and at C2-3 secondary to OPLL. There is satisfactory position of the hardware and decompression C3-C6. There is a epidural fluid collection most likely hematoma in the area of postsurgical changes. I had a long discussion with the patient in a personally spoke with Dr. Gucci Menendez head of orthosis spine surgery at [facility]. He suggests an extension of the decompression and fusion from the occiput to the upper thoracic spine. We have discussed ICU transferred to [facility] and he is amenable to accepting the patient. I had a long discussion with the patient and who agree with the plan. The patient prefers this option rather than observing him neurologically for any extended period which I think is reasonable and have supported additional extension of the surgery. Objective Vital signs: Vital Signs Temp Pulse Resp BP Pulse Ox 06/26/19 12:00 98.3 F 06/26/19 11:00 100 16 143/92 93 06/26/19 09:00 116 16 134/88 94 06/26/19 08:26 99.1 F 06/26/19 07:40 16 96 06/26/19 07:00 112 16 125/50 93 06/26/19 06:00 110 17 114/83 94 06/26/19 05:00 110 17 110/80 95 06/26/19 04:42 100.2 F H 06/26/19 04:00 110 17 113/81 95 06/26/19 03:01 109 06/26/19 03:00 108 16 116/80 94 06/26/19 02:00 107 16 109/76 94 06/26/19 01:00 108 16 112/79 94 06/26/19 00:00 108 18 124/83 90 06/25/19 23:53 14 126/89 90 06/25/19 23:49 99.8 F H 06/25/19 23:25 105 06/25/19 23:00 105 20 126/89 99 06/25/19 22:28 18 99 06/25/19 22:00 104 20 119/83 98 06/25/19 21:00 102 19 122/88 99 06/25/19 20:00 100.2 F H 93 19 126/85 98 06/25/19 19:40 92 06/25/19 19:18 98.9 F 91 18 128/90 99 06/25/19 19:08 98.9 F 96 18 120/82 99 06/25/19 18:58 91 18 131/81 99 06/25/19 18:48 90 18 127/81 99 06/25/19 18:38 99 F 89 22 132/93 98 06/25/19 18:28 93 18 130/84 98 06/25/19 18:18 90 18 116/78 98 06/25/19 18:08 98.1 F 90 20 120/78 98 06/25/19 17:58 90 16 120/79 97 06/25/19 17:48 91 20 120/75 98 06/25/19 17:38 98.3 F 92 18 114/76 97 06/25/19 17:28 92 20 121/77 98 06/25/19 17:18 92 18 114/72 97 06/25/19 17:08 98.6 F 92 18 112/73 97 06/25/19 16:58 93 20 110/73 97 06/25/19 16:48 94 20 105/66 97 06/25/19 16:38 98.3 F 95 22 104/68 97 06/25/19 16:28 95 18 112/69 98 06/25/19 16:18 98 20 98/62 97 06/25/19 16:10 22 95/63 100 06/25/19 16:08 98.4 F 97 20 95/63 100 Intake and Output 06/25/19 06/26/19 06/26/19 23:59 07:59 15:59 Intake Total 1196.3 / 1220.5 1100 / 1100 Output Total 2100 / 2100 700 / 1900 1200 / 1900 Balance -903.7 / -879.5 400 / -800 -1200 / -800 Intake: IV Fluids 1196.3 / 1220.5 1100 / 1100 HumuLIN R 100 UNIT In 0.9 % 66.3 / 70.3 Sodium Chloride 100 ML @ 6.75 UNIT/HR 6.818 mls/hr IVC CONT EDIN Rx#:[id number] Lactated Ringers 1,000 ML @ 100 1000 / 1000 1000 / 1000 mls/hr IVC .Q[facility]H [facility] Rx#: [id number] Ancef Syringe 3,000 MG/30 ML 3, 30 / 30 000 mg In 30 ml @ 200 mls/hr IVPB PREOP ONE Rx#:[id number] Ancef 2,000 MG In 0.9 % Sodium 100 / 100 100 / 100 Chloride 100 ML @ 200 mls/hr IVPB Q8H [facility] Rx#:[id number] Output: Estimated Blood Loss 400 / 400 Urine Amount (Catheter) 1150 / 1150 Catheter 550 / 550 700 / 1900 1200 / 1900 Other: Weight 141.1 kg Blood Glucose* 295 346 - Labs CBC & BMP: 06/26/19 06:48 06/26/19 06:48 Labs: Abnormal lab results MCV 80.6 fL (83.0-100.0) L 06/26/19 06:48 MCH 25.2 pg (28.0-33.3) L 06/26/19 06:48 MCHC 31.3 g/dL (31.6-35.5) L 06/26/19 06:48 RDW 15.9 % (11.5-14.5) H 06/26/19 06:48 Neutrophils # 9.0 K/mcL (1.6-8.9) H 06/26/19 06:48 ABG Total CO2 28 mEq/L (20-26) H 06/25/19 21:45 Sodium 135 mEq/L (136-145) L 06/25/19 21:20 Chloride 97 mEq/L (98-107) L 06/26/19 06:48 Glucose 298 mg/dL (70-105) H 06/26/19 06:48 POC Glucose 295 mg/dL (70-99) H 06/25/19 23:30 Consult Discharge Plan - Plan Referrals: NONE,PCP [Primary Care Provider] -
[2019-06-26] MEDS ORDERED: *HR* Dextrose 50 % in Water (Syg) 50 ML SYRINGE IVP PRN (14:24)
[2019-06-26] MEDS: Insulin Human Regular 100 UNIT in 0.9 % Sodium Chloride 100 ML IVC SCH (17:00)
[2019-06-26] MEDS: *HR* Rivaroxaban 10 MG TABLET PO SCH (17:16)
[2019-06-27] MEDS: Insulin Human Regular 100 UNIT in 0.9 % Sodium Chloride 100 ML IVC SCH (00:45)
[2019-06-27 01:05] VITALS: BP 108/74
--- NOTE | 2019-06-27 07:40 | Discharge Summary ---
- NOTES TO OUTPATIENT PROVIDER Notes to Outpatient Provider: Follow-up per [facility] postoperative instructions by Dr. 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 Segla is a 64 year old male patient was admitted with left upper and lower extremity weakness, progressive gait disturbance, and impaired dexterity in the hands. He was found to have classic symptoms of myelopathy and was scheduled for cervical decompression and fusion posteriorly. He underwent posterior fusion with instrumentation C3-C6 with additional decompression at C2-3 interspace. Postoperatively he was noted to have significant upper and lower motor extremity weakness only firing his right foot in PACU. He had neurologic consultation. He was started on steroids and transferred to the intensive care unit for frequent neuro checks and management of hyperglycemia. Radiographic studies done in the PACU showed satisfactory placement of the instrumentation. 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 MRI of brain and cervical spine was performed and revealed compression posterior to C2 with decompression C3-C6. A long discussion was had with the patient suggesting more proximal decompression and stabilization and after discussion with the chief of orthopedic spine surgery at [facility] ( Dr Gucci Menendez) it was suggested to transfer to [facility] for probable occiput to the thoracic fusion and wide decompression. Patient was amenable to this plan and was transferred uneventfully. - Time Spent with Patient Total time spent providing and/or coordinating discharge services: Less than 30 minutes - Discharge Medications Prescriptions: No Action Amitriptyline [Elavil] 50 mg PO HS Amlodipine Besylate 10 mg PO DAILY Ascorbic Acid [Vitamin C with Asuncion Hips] 500 mg PO DAILY Atorvastatin [Lipitor] 40 mg PO HS Cholecalciferol (D-3) [Vitamin D] 1,000 unit PO DAILY Cholecalciferol (Vitamin D3) [Vitamin D] 50,000 unit PO QMONTH Febuxostat [Uloric] 40 mg PO DAILY Ferrous Sulfate 325 mg PO DAILY Furosemide [Lasix] 40 mg PO DAILY PRN PRN Reason: Edema Gabapentin 1,600 mg PO BID Lisinopril [Zestril] 20 mg PO DAILY Loratadine [Claritin] 10 mg PO DAILY Metformin HCl [Glucophage] 1,000 mg PO DAILY Metoprolol [Lopressor] 12.5 mg PO DAILY Mometasone/Formoterol [Dulera 100 Mcg/5 Mcg Inhaler] 2 puff IH BID Montelukast [Singulair] 10 mg PO DAILY Potassium Chloride [K-Tab ER] 20 meq PO DAILY Rivaroxaban [Xarelto] 20 mg PO QPM Tamsulosin [Flomax] 0.4 mg PO DAILY Home Medications: Amitriptyline [Elavil] 50 mg PO HS 06/25/19 [History] Amlodipine Besylate 10 mg PO DAILY 06/25/19 [History] Ascorbic Acid [Vitamin C with Asuncion Hips] 500 mg PO DAILY 06/25/19 [History] Atorvastatin [Lipitor] 40 mg PO HS 06/25/19 [History] Cholecalciferol (D-3) [Vitamin D] 1,000 unit PO DAILY 06/25/19 [History] Cholecalciferol (Vitamin D3) [Vitamin D] 50,000 unit PO QMONTH 06/25/19 [History] Febuxostat [Uloric] 40 mg PO DAILY 06/25/19 [History] Ferrous Sulfate 325 mg PO DAILY 06/25/19 [History] Furosemide [Lasix] 40 mg PO DAILY PRN 06/25/19 [History] Gabapentin 1,600 mg PO BID 06/25/19 [History] Lisinopril [Zestril] 20 mg PO DAILY 06/25/19 [History] Loratadine [Claritin] 10 mg PO DAILY 06/25/19 [History] Metformin HCl [Glucophage] 1,000 mg PO DAILY 06/25/19 [History] Metoprolol [Lopressor] 12.5 mg PO DAILY 06/25/19 [History] Mometasone/Formoterol [Dulera 100 Mcg/5 Mcg Inhaler] 2 puff IH BID 06/25/19 [History] Montelukast [Singulair] 10 mg PO DAILY 06/25/19 [History] Potassium Chloride [K-Tab ER] 20 meq PO DAILY 06/25/19 [History] Rivaroxaban [Xarelto] 20 mg PO QPM 06/25/19 [History] Tamsulosin [Flomax] 0.4 mg PO DAILY 06/25/19 [History] Allergies/Adverse Reactions: Allergy/AdvReac Type Severity Reaction Status Date / Time No Known Allergies Allergy Verified 06/25/19 07:17 Date of admission: 06/25/19 19:58 Primary care physician: PCP NONE Consults: 06/25/19 20:04 Consult to Occupational Therapy [CONS] Routine Comment: Evaluate, develop and implement POC Reason for Consult: Postoperative rehabilitation Does patient have active BEDREST order?: No Is patient medically & hemodynamically stable?: Yes Patient assessed for mobility or mobilized this visit?: No Consult to Physical Therapy [CONS] Routine Comment: Evaluate, develop and implement POC Reason for Consult: Postoperative rehabilitation Does patient have active BEDREST order?: No Is patient medically & hemodynamically stable?: Yes Patient assessed for mobility or mobilized this visit?: No Consult to Spine Navigator [CONS] [CONS] Routine - VTE Documentation of Mechanical Device: Graduated compression elastic hosiery Labs on day of discharge: Labs from last 24 hours 06/27/19 06/27/19 06/26/19 01:01 00:16 23:05 POC Glucose 175 H 203 H 210 H 06/26/19 06/26/19 06/26/19 22:04 21:09 20:22 POC Glucose 221 H 223 H 243 H 06/26/19 06/26/19 06/26/19 19:09 18:08 17:15 POC Glucose 271 H 288 H 299 H 06/26/19 06/26/19 11:25 06:26 POC Glucose 346 H 269 H - Impressions ITS Impressions Cervical Spine X-Ray 06/25/19 00:00 IMPRESSION: Status post posterior stabilization from C3-C6. D/ : / 06/25/2019 15:26:56 Amadeo Cheung MD / [email or web address] Inter[facility]ting Provider: Amadeo Cheung MD Fluoroscopy 06/25/19 00:00 IMPRESSION: Status post posterior stabilization from C3-C6. D/ / 06/25/2019 15:26:56 Amadeo Cheung MD / [email or web address] Interpreting Provider: Amadeo Cheung MD Cervical Spine X-Ray 06/25/19 17:13 IMPRESSION: Posterior cervical fusion from C3 through C6. D/ /25/2019 17:51:31 Clifford Salgado MD / [email or web address] Interpreting Provider: Clifford Salgado MD Brain MRI 06/26/19 07:37 IMPRESSION: No acute intracranial abnormality. Scalp edema, worse on the left than the right. D/ 06/26/2019 11:36:19 Hanna Stratton MD / [email or web address] Interpreting Provider: Hanna Stratton MD Cervical Spine MRI 06/26/19 07:37 IMPRESSION: New posterior cervical fusion and laminectomy from C3 through C6. Postoperative seroma is identified within the posterior epidural space from C3-4 through C5-6. 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 New high T2 signal abnormality within the cord centrally at C2 and C4 and on the right-side at C5-6. These changes may represent edema/myelomalacia. Stable mild to moderate central canal stenosis at C6-7. Stable moderate bilateral foraminal stenosis at C6-7 and C7-T1. D/ / 06/26/2019 11:41:59 Clifford Salgado MD / [email or web address] Interpreting Provider: Clifford Salagdo MD - Patient Status Disposition: Transfer Short-Term Hosp Condition: Fair Functional capacity at discharge: bed bound Overall status at discharge: patient is not back to baseline - Discharge Instructions Follow Up With: NONE,PCP [Primary Care Provider] - - Diet and Activity Activity: other Diet: regular diet
== END 2019-06-27 01:35 | disposition short-term general hospital (02) | DRG 321 ==
LOC: SAMDAY 06:09 → ICNU 19:58
PROVIDERS: ADMIT Orthopaedic Surgery Orthopaedic Surgery of the Spine; ATTEND Orthopaedic Surgery Orthopaedic Surgery of the Spine